=== PATIENT | female | born 1985 | race Caucasian/White ===

== ENCOUNTER 2018-11-21 13:36 | Inpatient (IN) | payer BC ==
[~2018-11-21] VITALS: Ht 175.3 cm; Wt 100.1 kg
[~2018-11-21 13:36] MED LIST: ACET325T33 PO; LIPA1CAP4 PO; PANT40TA4 PO; TRAM50TA PO
[2018-11-21] MEDS ORDERED: morphine 2 MG INJ IV STA (15:26)
[2018-11-21] MEDS ORDERED: ONDANSETRON 4 MG INJ IV STA ×3 (15:26→17:41)
[2018-11-21] MEDS ORDERED: FAMOTIDINE 20 MG INJ IV STA (15:26)
[2018-11-21] MEDS ORDERED: HYDROmorphONE 1 MG/ML SYG IV STA ×2 (16:02→17:41)
[2018-11-21] MEDS ORDERED: SOD CHLORIDE 0.9% 1,000 ML IV STA (16:02)
[2018-11-21] MEDS ORDERED: IOHEXOL 300MG/ML 150 ML BTL ONE (16:34)
[2018-11-21] MEDS ORDERED: SOD CHLORIDE 0.9% 100 ML ONE (16:34)
[2018-11-21] MEDS ORDERED: SOD CHLORIDE 0.9% 1,000 ML IV SCH ×2 (19:46→21:01)
[2018-11-21] MEDS ORDERED: ONDANSETRON 4 MG INJ IV PRN ×2 (20:00→21:30)
[2018-11-21] MEDS ORDERED: ACETAMINOPHEN 325 MG TAB PO PRN (20:00)
[2018-11-21 21:10] VITALS: BP 131/84; PULSE 63; RESP 18
[2018-11-21 21:20] VITALS: Ht 175.3 cm; Wt 100.1 kg
[2018-11-21] MEDS ORDERED: HYDROmorphONE 0.5 MG/0.5 ML SYG IV PRN ×2 (21:30→22:30)
[2018-11-21] MEDS ORDERED: DOCUSATE SODIUM 100 MG CAP PO PRN (21:30)
[2018-11-21] MEDS ORDERED: BISACODYL (EC) 5 MG TAB PO PRN (21:30)
[2018-11-21] MEDS ORDERED: NACL 0.9% 3 ML SYG IV SCH (21:30)
[2018-11-21] MEDS ORDERED: HYDROmorphONE 1 MG/ML SYG IV ONE (22:30)
[2018-11-21] MEDS: SOD CHLORIDE 0.9% 1,000 ML IV SCH (23:04)
[2018-11-22] MEDS ORDERED: HYDROmorphONE 1 MG/ML SYG IV ONE
[2018-11-22] MEDS ORDERED: KETOROLAC 30 MG INJ IV ONE (02:18)
[2018-11-22 02:27] VITALS: BP 134/70; PULSE 66; RESP 18
[2018-11-22] MEDS ORDERED: METOCLOPRAMIDE 10 MG INJ IV PRN (02:30)
[2018-11-22] MEDS: ONDANSETRON 4 MG INJ IV PRN ×2 (02:40→19:29)
[2018-11-22] MEDS: morphine (ER) 15 MG TAB PO SCH ×3 (03:28→21:17)
[2018-11-22] MEDS ORDERED: FENTAnyl PATCH 12 MCG/HR TRANSDERM SCH (03:30)
[2018-11-22] MEDS: SOD CHLORIDE 0.9% 1,000 ML IV SCH ×4 (04:04→20:20)
[2018-11-22] MEDS: HYDROmorphONE 0.5 MG/0.5 ML SYG IV PRN ×5 (05:29→19:23)
[2018-11-22 08:21] VITALS: BP 116/56; PULSE 82; RESP 20
[2018-11-22 14:00] VITALS: BP 109/55; PULSE 71; RESP 20
[2018-11-22] MEDS: ACETAMINOPHEN 325 MG TAB PO PRN (20:17)
[2018-11-22 20:30] VITALS: BP 131/70; PULSE 111; RESP 18
[2018-11-22] MEDS ORDERED: HYDROmorphONE 0.5 MG/0.5 ML SYG IV PRN (21:30)
[2018-11-22] MEDS ORDERED: IBUPROFEN 600 MG TAB PO PRN (22:00)
[2018-11-22] MEDS ORDERED: VANCOMYCIN IV PER PHARMACY XX SCH (22:00)
[2018-11-22] MEDS: HYDROmorphONE 2 MG/ML SYG IV PRN (22:40)
[2018-11-22] MEDS: MEROPENEM 1 GM/50ML(PMX) 50 ML IVPB SCH (22:40)
[2018-11-22] MEDS ORDERED: VANCOMYCIN 1.5 GM/NS 250 ML 250 ML IVPB ONE (23:00)
[2018-11-23] MEDS: HYDROmorphONE 2 MG/ML SYG IV PRN ×7 (01:41→21:59)
[2018-11-23 02:10] VITALS: BP 100/55; PULSE 100; RESP 18
[2018-11-23] MEDS: ONDANSETRON 4 MG INJ IV PRN (04:58)
[2018-11-23] MEDS: SOD CHLORIDE 0.9% 1,000 ML IV SCH ×3 (07:23→17:55)
[2018-11-23 08:28] VITALS: BP 103/55; PULSE 89; RESP 18
[2018-11-23] MEDS ORDERED: VANCOMYCIN 1 GM 250 ML IVPB SCH ×2 (09:00→11:00)
[2018-11-23] MEDS: morphine (ER) 15 MG TAB PO SCH ×2 (10:36→21:01)
[2018-11-23] MEDS: MEROPENEM 1 GM/50ML(PMX) 50 ML IVPB SCH ×2 (10:37→21:59)
[2018-11-23 14:00] VITALS: BP 124/71; PULSE 107; RESP 18
[2018-11-23] MEDS: ACETAMINOPHEN 325 MG TAB PO PRN (14:54)
[2018-11-23 20:00] VITALS: BP 118/73; PULSE 96; RESP 18
[2018-11-24] MEDS: HYDROmorphONE 2 MG/ML SYG IV PRN ×5 (00:59→16:50)
[2018-11-24 02:00] VITALS: BP 119/78; PULSE 100; RESP 17
[2018-11-24] MEDS: SOD CHLORIDE 0.9% 1,000 ML IV SCH ×4 (03:00→18:13)
[2018-11-24 08:00] VITALS: BP 118/80; PULSE 82; RESP 20
[2018-11-24] MEDS: morphine (ER) 15 MG TAB PO SCH (08:22)
[2018-11-24] MEDS: MEROPENEM 1 GM/50ML(PMX) 50 ML IVPB SCH (09:52)
[2018-11-24] MEDS ORDERED: PANTOPRAZOLE (EC) 40 MG TAB PO SCH (11:00)
[2018-11-24] MEDS: CREON (12k-38k-60k) 1 CAP PO SCH ×2 (11:30→11:53)
[2018-11-24 14:00] VITALS: BP 124/67; PULSE 79; RESP 16
== END 2018-11-24 20:09 | disposition home or self-care (01) | DRG 440 ==
LOC: E/R 13:36 → PP2 19:48 → OBSVTOIN 11-23 09:07
PROVIDERS: ADMIT Family Medicine; ATTEND Internal Medicine
DX: K86.1 Other chronic pancreatitis (principal); E66.9 Obesity, unspecified; Z68.32 Body mass index [BMI] 32.0-32.9, adult; D72.829 Elevated white blood cell count, unspecified; G89.29 Other chronic pain; K75.81 Nonalcoholic steatohepatitis (NASH); F43.21 Adjustment disorder with depressed mood
CPT/HCPCS: 71045; 74018; 74177; 74181; 76705; 80053; 80061; 81001; 81025; 82150; 82787; 83036; 83605; 83690; 83735; 84443; 85025; 86038; 87086; 96374; 96375; 96376; 99217; G0378; J1170; J1885; J2185; J2270; J2405; J3370; J7030; Q9967